=== PATIENT | male | born 1970 | race Two or more races ===

== ENCOUNTER 2017-02-20 20:17 | Emergency (ER) | payer OTHER ==
[2017-02-20 20:49] VITALS: BP 128/91; PULSE 71; TEMP 97.9; BMI 28.8
[2017-02-20] MEDS ORDERED: AZITHROMYCIN 1 GM PACKET PO ONE (21:22)
--- NOTE | 2017-02-20 21:30 | PDOC ---
History of Present Illness - General Chief Complaint: Burn Stated Complaint: URINARY PROBLEM Time Seen by Provider: 02/20/17 20:57 History Source: Patient Exam Limitations: No Limitations - History of Present Illness Travel History: No Initial Comments: 02/20/17 21:25 46-year-old male presents to the emergency room for evaluation of burning upon urination since yesterday. Patient states no history of renal colic, history of UTI, history of STD, fever or chills. Patient does state had unprotected sex with another male last week and is concerned for STD. Patient states has an appointment with her doctor next week but could not wait and decided to come to the ER. Timing/Duration: reports: other Quality: reports: mild Pain Radiation: denies: no radiation Aggravating Factors: improves with: Voiding Alleviating Factors: worse with: None Past History - Travel Traveled outside of the country in the last 30 days: No - Past Medical History Allergies/Adverse Reactions: Allergies Allergy/AdvReac Type Severity Reaction Status Date / Time No Known Allergies Allergy Verified 02/20/17 20:34 Home Medications: Ambulatory Orders NK [No Known Home Medication] 02/20/17 Other medical history: Pt denies - Psycho/Social/Smoking Cessation Hx Anxiety: No Suicidal Ideation: No Smoking History: Never smoked Information on smoking cessation initiated: No Hx Alcohol Use: No Drug/Substance Use Hx: No Substance Use Type: None Patient Lives Alone: No Review of Systems - Review of Systems Able to Perform ROS?: Yes Constitutional: No: Symptoms Reported : Yes: Burning. No: Discharge, Frequency, Flank Pain, Hematuria, Lesions, Testicular Pain Musculoskeletal: No: Symptoms Reported Integumentary: No: Symptoms Reported Neurological: No: Symptoms reported *Physical Exam - Vital Signs Last Vital Signs Temp Pulse Resp BP Pulse Ox 97.9 F 71 20 128/91 98 02/20/17 20:35 02/20/17 20:35 02/20/17 20:35 02/20/17 20:35 02/20/17 20:35 - Physical Exam General Appearance: Yes: Nourished, Appropriately Dressed. No: Apparent Distress Male Genitalia: positive: normal genitalia. negative: discharge, other Integumentary: positive: Normal Color, Warm, Moist Neurologic: positive: Motor Strength 5/5 (ambulatory) Medical Decision Making - Medical Decision Making 02/20/17 21:30 Patient complains of burning upon urination since yesterday. Patient states had unprotected sex with a male. Patient then had no acute findings. Patient ordered for gonorrhea chlamydia will be treated for the same. Patient also ordered for urinalysis urine culture. 02/20/17 21:51 Laboratory Tests 02/20/17 21:17 Urine Ketones Negative Ur Leukocyte Esterase Negative Patient will be given callback number and told to abstain from sexual intercourse for the next 7 days. *DC/Admit/Observation/Transfer Diagnosis at time of Disposition: Dysuria - Discharge Dispostion Disposition: HOME Condition at time of disposition: Good - Patient Instructions Printed Discharge Instructions: DI for Dysuria -- Adult, Facts About Sexually Transmitted Infections Additional Instructions: You have been treated for both gonorrhea and chlamydia although the results will take 7 days to results. I do recommend to abstain from sexual intercourse for the next 7 days and to call [phone] for your results. Please also follow-up with your primary care physician discussed today's visit.
[2017-02-20 21:31] LABS: URINE APPEARANCE CLEAR; URINE BILIRUBIN NEGATIVE (NEGATIVE); URINE BLOOD NEGATIVE (NEGATIVE); URINE COLOR YELLOW; URINE GLUCOSE (UA) NEGATIVE (NEGATIVE); URINE KETONE NEGATIVE (NEGATIVE); URINE LEUK ESTERASE NEGATIVE (NEGATIVE); URINE NITRITE NEGATIVE (NEGATIVE); URINE PROTEIN NEGATIVE (NEGATIVE); URINE UROBILINOGEN NEGATIVE mg/dL (0.2-1.0)
[2017-02-20] MEDS ORDERED: AZITHROMYCIN 1 GM PACKET ONE (21:35)
[2017-02-20] MEDS ORDERED: LIDOCAINE HCL/PF 1% SDV 5ML VIAL ONE (21:37)
== END 2017-02-20 22:15 | disposition home or self-care (01) ==
LOC: JERFT 20:17
DX: R30.0 Dysuria (principal)
CPT/HCPCS: 36415; 81003; 87086; 87491; 87591; 99281-25

== ENCOUNTER 2018-04-25 14:11 | Emergency (ER) | payer OTHER ==
[2018-04-25 14:24] VITALS: BP 118/78; PULSE 75; TEMP 98; BMI 28.8
--- NOTE | 2018-04-25 14:53 | PDOC ---
History of Present Illness - General Chief Complaint: Hemorrhoids Stated Complaint: ANAL DISCOMFORT Time Seen by Provider: 04/25/18 14:28 - History of Present Illness Initial Comments: 47-year-old male without comorbidities presents for evaluation of the hemorrhoid which has been exacerbated for the last 4 days without any precipitating event. He has no other associated symptoms besides rectal pain 04/25/18 14:49 Past History - Past Medical History Allergies/Adverse Reactions: Allergies Allergy/AdvReac Type Severity Reaction Status Date / Time No Known Allergies Allergy Verified 04/25/18 14:20 Home Medications: Ambulatory Orders Docusate Sodium [Colace] 100 mg PO BID #60 capsule 04/25/18 Hydrocortisone Acetate [Anusol Hc Suppository -] 25 mg RC BID #28 supp.rect 01/05 COPD: No - Suicide/Smoking/Psychosocial Hx Smoking History: Never smoked Hx Alcohol Use: No Drug/Substance Use Hx: No Substance Use Type: None Review of Systems - Review of Systems ABD/GI: Yes: See HPI, Rectal Bleeding All Other Systems: Reviewed and Negative *Physical Exam - Vital Signs Last Vital Signs Temp Pulse Resp BP Pulse Ox 98.0 F 75 18 118/78 97 04/25/18 14:20 04/25/18 14:20 04/25/18 14:20 04/25/18 14:20 04/25/18 14:20 - Physical Exam Comments: HEAD: NC/AT EYES: Conjuntiva clear MS: Full ROM in all joints NEUROLOGIC: No gross sensory or motor deficits, NVID SKIN: Normal color and temperature no lesions or rashes There is a small subcentimeter hemorrhoid at the 3 o'clock position which is tender there is blood present around the skin adjacent to the anus. 04/25/18 14:50 Medical Decision Making - Medical Decision Making I have recommended fiber supplementation decreased carbohydrate diet decreased sugars, hydrocortisone suppository stool softener and GI follow-up 04/25/18 14:51 *DC/Admit/Observation/Transfer Diagnosis at time of Disposition: Bleeding hemorrhoid - Discharge Dispostion Disposition: HOME Condition at time of disposition: Stable Decision to Admit order: No - Referrals Referrals: Solomon Kim MD [Staff Physician] - - Patient Instructions Printed Discharge Instructions: DI for Hemorrhoids Additional Instructions: Return to the emergency room should symptoms worsen or go unresolved. Please follow-up with gastroenterology in one to 2 days for further evaluation and treatment options. Use the suppositories and stool softener as directed. Decreased her carbohydrate intake which will help with her constipation and pain during a bowel movement. Use a fiber supplement such as Benefiber or Metamucil as directed. - Post Discharge Activity
== END 2018-04-25 14:55 | disposition home or self-care (01) ==
LOC: JERFT 14:11
DX: K64.4 Residual hemorrhoidal skin tags (principal)
CPT/HCPCS: 99281-25

== ENCOUNTER 2021-10-18 04:39 | Day surgery (SDC) | payer OTHER ==
[2021-10-16 08:36] VITALS: BMI 27.9
[2021-10-18 11:04] VITALS: TEMP 97.5
[2021-10-18 11:31] VITALS: BP 129/83; PULSE 68
== END 2021-10-18 11:40 | disposition home or self-care (01) ==
LOC: JASU-ENDO 04:39
PROVIDERS: ATTEND Internal Medicine Gastroenterology
PROC: 0DBH8ZX Excision of Cecum, Via Natural or Artificial Opening Endoscopic, Diagnostic (ICD-10-PCS; principal; 2021-10-18 10:45)
DX: Z12.11 Encounter for screening for malignant neoplasm of colon (principal); D12.0 Benign neoplasm of cecum; K64.8 Other hemorrhoids
CPT/HCPCS: 88305-TC

== ENCOUNTER 2024-04-15 04:28 | Day surgery (SDC) | payer OTHER ==
[2024-04-08 10:37] VITALS: BMI 31.7
[2024-04-15 07:48] VITALS: TEMP 97.7
[2024-04-15 07:59] VITALS: RESP 20
[2024-04-15 08:20] VITALS: BP 122/77; PULSE 67
== END 2024-04-15 09:05 | disposition home or self-care (01) ==
LOC: JASU-ENDO 04:28
PROVIDERS: ATTEND Internal Medicine Gastroenterology
PROC: 0DJD8ZZ Inspection of Lower Intestinal Tract, Via Natural or Artificial Opening Endoscopic (ICD-10-PCS; principal; 2024-04-15 07:30)
DX: Z12.11 Encounter for screening for malignant neoplasm of colon (principal); Z86.010 Personal history of colon polyps